=== PATIENT | male | born 1980 | race Caucasian/White ===

== ENCOUNTER 2020-06-21 19:14 | Emergency (ER) | payer OTHER ==
[~2020-06-21] VITALS: Ht 165.1 cm; Wt 85.7 kg
[2020-06-21 19:42] VITALS: BP_SYST 154
[2020-06-21 20:04] VITALS: BP_SYST 154
== END 2020-06-21 20:04 | disposition home or self-care (01) ==
LOC: SED 19:14
DX: M54.12 Radiculopathy, cervical region (principal); F17.210 Nicotine dependence, cigarettes, uncomplicated
CPT/HCPCS: 93005; 99283